=== PATIENT | female | born 1980 | race African-American/Black ===

== ENCOUNTER 2020-07-10 05:40 | Inpatient (IN) | payer OTHER ==
[2020-07-10] MEDS ORDERED: ELECTROLYTE-148 SOLN 500 ML IV ONE ×2 (06:00→07:04)
[2020-07-10] MEDS ORDERED: CITRIC ACID/SODIUM CITRATE 30 ML UNIT-DOSE CUP PO ONE ×2 (06:00→07:05)
[2020-07-10 06:27] VITALS: BMI 34.6
[2020-07-10] MEDS ORDERED: ELECTROLYTE-148 SOLN 1,000 ML IV SCH ×2 (06:30→07:33)
[2020-07-10 06:46] LABS: BASO % 0.3 % (0-2.0); EOS % 0.5 % (0-4.5); HEMATOCRIT 34.2 % (32.4-45.2); HEMOGLOBIN 11.8 GM/dL (10.7-15.3); LYMPH % 21.9 % (8-40); MCH 29.6 pg (25.7-33.7); MCHC 34.3 g/dl (32.0-36.0); MEAN CELL VOLUME 86.2 fl (80-96); MEAN PLT VOLUME 9.1 fl (7.5-11.1); MONO % 9.1 % (3.8-10.2); NEUT % 68.2 % (42.8-82.8); PLATELET COUNT 213 K/MM3 (134-434); RBC 3.97 M/mm3 (3.60-5.2); RDW 15.2 % (11.6-15.6); WHITE BLOOD COUNT 7.6 K/mm3 (4.0-10.0)
[2020-07-10 06:53] LABS: INR 0.95 (0.83-1.09); PROTHROMBIN TIME (PATIENT) 11.5 SEC (9.7-13.0)
[2020-07-10 06:56] LABS: ACTIVATED PTT 27.5 SECONDS (25.2-36.5)
[2020-07-10 07:05] LABS: BLOOD UREA NITROGEN 8.4 mg/dL (7-18)
[2020-07-10 07:09] LABS: CREATININE 0.6 mg/dL (0.55-1.3)
[2020-07-10] MEDS ORDERED: morphine SULFATE/PF 0.5 MG/ML (2cc Syringe - QUVA) ONE (07:10)
[2020-07-10] MEDS ORDERED: SENNOSIDES/DOCUSATE COMBO (SENNA PLUS) TABLET (UD) PO PRN (07:13)
[2020-07-10] MEDS ORDERED: oxyCODONE HCL 5 MG TABLET PO PRN (07:13)
[2020-07-10] MEDS ORDERED: IBUPROFEN 800 MG/8 ML IJ IVPB PRN (07:13)
[2020-07-10] MEDS ORDERED: METHYLERGONOVINE MALEATE 0.2 MG/1 ML AMP IM PRN (07:13)
[2020-07-10] MEDS ORDERED: OXYTOCIN 20 UNITS in 0.9% NS 20 UNIT/1,000 ML INFUS.BAG IV SCH (07:15)
[2020-07-10] MEDS ORDERED: ONDANSETRON 4 MG/2 ML VIAL IVPUSH PRN (07:17)
[2020-07-10] MEDS ORDERED: PROPOFOL 20 ML ONE (07:19)
[2020-07-10] MEDS ORDERED: ePHEDrine SULFATE 50 MG/1 ML AMPULE ONE (07:58)
[2020-07-10] MEDS ORDERED: OXYTOCIN 10 UNITS/ML VIAL ONE (08:32)
[2020-07-10] MEDS ORDERED: KETOROLAC TROMETHAMINE 30 MG/1 ML VIAL ONE (08:38)
[2020-07-10] MEDS: PRENATAL VITAMINS W/ FOLIC ACID TABLET (FP) PO SCH (10:55)
[2020-07-10 11:40] LABS: HIV INTERPRETATION NEGATIVE (NEGATIVE)
[2020-07-10] MEDS ORDERED: IBUPROFEN 800 MG/8 ML IJ IVPB ONE (14:12)
[2020-07-10] MEDS ORDERED: OXYTOCIN 20 UNITS in 0.9% NS 20 UNIT/1,000 ML INFUS.BAG IV ONE (14:13)
[2020-07-10] MEDS: SIMETHICONE 80 MG TAB.CHEW (FP) PO PRN (22:16)
[2020-07-10] MEDS: ACETAMINOPHEN 325 MG TABLET (FP) PO PRN (22:16)
[2020-07-10] MEDS: IBUPROFEN 600 MG TABLET (FP) PO PRN (22:17)
[2020-07-11] MEDS: IBUPROFEN 600 MG TABLET (FP) PO PRN ×3 (01:48→17:35)
[2020-07-11] MEDS: ACETAMINOPHEN 325 MG TABLET (FP) PO PRN ×3 (01:48→17:35)
[2020-07-11] MEDS: SIMETHICONE 80 MG TAB.CHEW (FP) PO PRN ×3 (01:50→17:35)
[2020-07-11] MEDS ORDERED: BISACODYL 10 MG SUPP.RECT RC PRN (07:13)
[2020-07-11] MEDS: PRENATAL VITAMINS W/ FOLIC ACID TABLET (FP) PO SCH (09:24)
[2020-07-11 18:23] LABS: BASO % 0.6 % (0-2.0); EOS % 1.5 % (0-4.5); HEMATOCRIT 30.2 % (32.4-45.2); HEMOGLOBIN 10.2 GM/dL (10.7-15.3); LYMPH % 18.8 % (8-40); MCH 29.8 pg (25.7-33.7); MCHC 33.9 g/dl (32.0-36.0); MEAN CELL VOLUME 87.8 fl (80-96); MEAN PLT VOLUME 9.4 fl (7.5-11.1); MONO % 9.1 % (3.8-10.2); PLATELET COUNT 201 K/MM3 (134-434); RBC 3.44 M/mm3 (3.60-5.2); RDW 15.7 % (11.6-15.6); WHITE BLOOD COUNT 8.3 K/mm3 (4.0-10.0)
[2020-07-12] MEDS: oxyCODONE HCL 5 MG TABLET PO PRN ×3 (01:49→18:48)
[2020-07-12] MEDS: IBUPROFEN 600 MG TABLET (FP) PO PRN ×3 (01:50→18:47)
[2020-07-12] MEDS: SIMETHICONE 80 MG TAB.CHEW (FP) PO PRN ×3 (01:52→18:49)
[2020-07-12] MEDS: PRENATAL VITAMINS W/ FOLIC ACID TABLET (FP) PO SCH (10:47)
[2020-07-13] MEDS: ACETAMINOPHEN 325 MG TABLET (FP) PO PRN (06:11)
[2020-07-13] MEDS: IBUPROFEN 600 MG TABLET (FP) PO PRN (06:11)
[2020-07-13] MEDS: SIMETHICONE 80 MG TAB.CHEW (FP) PO PRN (06:12)
[2020-07-13] MEDS: PRENATAL VITAMINS W/ FOLIC ACID TABLET (FP) PO SCH (09:21)
[2020-07-13] MEDS ORDERED: NIFEdipine E.R. 30 MG TABLET PO ONE (09:30)
[2020-07-13 09:33] VITALS: BP 152/79; PULSE 63; TEMP 98
== END 2020-07-13 13:25 | disposition home or self-care (01) | DRG 788 ==
LOC: JLDR 05:40 → J3W 19:17
PROVIDERS: ADMIT Obstetrics & Gynecology; ATTEND Obstetrics & Gynecology
PROC: 10D00Z1 Extraction of Products of Conception, Low, Open Approach (ICD-10-PCS; principal; 2020-07-10)
DX: O34.219 Maternal care for unspecified type scar from previous cesarean delivery (principal); O42.02 Full-term premature rupture of membranes, onset of labor within 24 hours of rupture; D25.1 Intramural leiomyoma of uterus; Z3A.37 37 weeks gestation of pregnancy; Z37.0 Single live birth
CPT/HCPCS: 36415; 80048; 85025; 85610; 85730; 86780; 86850; 86900; 86901; 87389; C9803; U0003